=== PATIENT | male | born 1980 | race African-American/Black ===

== ENCOUNTER 2017-09-11 14:48 | Emergency (ER) | payer OTHER ==
[~2017-09-11] VITALS: Ht 175.3 cm; Wt 72.0 kg
[2017-09-11] MEDS ORDERED: KETOROLAC 30MG/ML VIAL IV STA (15:00)
[2017-09-11] MEDS ORDERED: ACETAMINOPHEN 325MG TABLET PO ONE (15:00)
[2017-09-11] MEDS ORDERED: SODIUM CHLORIDE 0.9% 1,000 ML IV ONE (15:00)
[2017-09-11] MEDS ORDERED: ONDANSETRON HCL 4MG/2ML VIAL IV STA (15:00)
[2017-09-11 15:44] LABS: INR 1.2; PROTHROMBIN TIME 12.9 sec (9.4-11.6)
[2017-09-11 15:45] LABS: HEMATOCRIT. 41.7 % (42.0-52.0); HEMOGLOBIN. 14.4 g/dL (14.0-18.0); MEAN CORPUSCULAR HEMOGLOBIN 30.3 pg (28.0-32.0); MEAN PLATELET VOLUME 8.5 fl (7.4-10.4); PLATELET 189 x1000/uL (130-400); RED BLOOD CELL COUNT 4.74 mill/uL (4.7-6.1)
[2017-09-11 15:46] LABS: CHLORIDE 103 mEq/L (98-107)
[2017-09-11 16:16] LABS: PLATELET ESTIMATE NORMAL
[2017-09-11 18:10] VITALS: BP 101/68
[2017-09-15] MEDS ORDERED: LEVO500T2 PO (15:14)
== END 2017-09-11 18:29 | disposition home or self-care (01) ==
LOC: ER 14:48
DX: R11.2 Nausea with vomiting, unspecified (principal)
CPT/HCPCS: 36415; 80053; 83690; 85025; 85610; 96361; 96374; 96375; 99285; J1885; J2405; J7030; Z7610; 96365

== ENCOUNTER 2017-09-12 15:50 | Inpatient (IN) | payer OTHER ==
[~2017-09-12] VITALS: Ht 177.8 cm; Wt 93.0 kg
[2017-09-12] MEDS ORDERED: SODIUM CHLORIDE 0.9% 1,000 ML IV ONE (16:35)
[2017-09-12] MEDS ORDERED: KETOROLAC 30MG/ML VIAL IV STA (16:35)
[2017-09-12] MEDS ORDERED: ONDANSETRON HCL 4MG/2ML VIAL IV STA (16:38)
[2017-09-12 16:58] LABS: HEMATOCRIT. 40.6 % (42.0-52.0); HEMOGLOBIN. 14.2 g/dL (14.0-18.0); MEAN CORPUSCULAR HEMOGLOBIN 30.6 pg (28.0-32.0); MEAN CORPUSCULAR VOLUME 87.7 fL (80.0-94.0); MEAN PLATELET VOLUME 8.1 fl (7.4-10.4); PLATELET 181 x1000/uL (130-400); RED BLOOD CELL COUNT 4.63 mill/uL (4.7-6.1); RED CELL DISTRIBUTION WIDTH 12.7 % (11.6-14.6)
[2017-09-12 17:05] LABS: INR 1.1; PROTHROMBIN TIME 11.9 sec (9.4-11.6)
[2017-09-12 17:10] LABS: CHLORIDE 105 mEq/L (98-107)
[2017-09-12 17:48] LABS: PLATELET ESTIMATE NORMAL
[2017-09-12] MEDS ORDERED: SODIUM CHLORIDE 0.9% 1000ML BAG (SEPSIS BOLUS) IV ONE (18:00)
[2017-09-12] MEDS ORDERED: LEVOFLOXACIN 750MG PREMIX 150 ML IV ONE (18:45)
[2017-09-12 19:01] LABS: CLARITY URINE CLEAR (CLEAR); COLOR URINE DARK YELLOW (YELLOW); KETONES URINE 1+ (NEGATIVE); LEUKOCYTE ESTERASE URINE NEGATIVE (NEGATIVE); NITRITE URINE NEGATIVE (NEGATIVE); OCCULT BLOOD URINE NEGATIVE (NEGATIVE); PH URINE 7.5 (4.5-8.0); PROTEIN URINE 1+ (NEGATIVE); SPECIFIC GRAVITY URINE 1.032 (1.005-1.030); UROBILINOGEN URINE >8.0 E.U./dL (0.2-1.0)
[2017-09-12] MEDS ORDERED: GUAIFENESIN 200MG/10ML SUGAR FREE UDC PO ONE (21:15)
[2017-09-12] MEDS ORDERED: CLONIDINE 0.1MG TABLET PO PRN (23:00)
[2017-09-12] MEDS ORDERED: DIPHENHYDRAMINE 50MG/ML VIAL IV PRN (23:00)
[2017-09-12] MEDS ORDERED: MAGNESIUM/ALUMINUM HYDROXIDE/SIMETHICONE 30ML UDC PO PRN (23:00)
[2017-09-12] MEDS ORDERED: ACETAMINOPHEN 650MG/20.3ML UDC GT PRN (23:00)
[2017-09-12] MEDS ORDERED: ACETAMINOPHEN 650MG SUPP PR PRN (23:00)
[2017-09-12] MEDS ORDERED: HYDROCODONE/ACETAMINOPHEN 5/325MG TABLET PO PRN (23:00)
[2017-09-12] MEDS ORDERED: NA PHOS,M-B/NA PHOS,DI-BA ENEMA 118ML PR PRN (23:00)
[2017-09-12] MEDS ORDERED: IPRATROPIUM/ALBUTEROL 0.5-3(2.5)MG/3ML NEB INH PRN (23:00)
[2017-09-12] MEDS ORDERED: DOCUSATE SODIUM 100MG CAPSULE PO PRN (23:00)
[2017-09-13] VITALS (10 sets, daily range): BP systolic 100–120; BP diastolic 52–76
[2017-09-13] MEDS: ACETAMINOPHEN 325MG TABLET PO PRN ×2 (00:45→10:04)
[2017-09-13] MEDS: CEFTRIAXONE 1 G PREMIX 50 ML IV SCH (02:32)
[2017-09-13] MEDS: GUAIFENESIN 200MG/10ML SUGAR FREE UDC PO PRN ×4 (02:32→20:19)
[2017-09-13] MEDS: AZITHROMYCIN 500 MG in SODIUM CHLORIDE 0.9% 250 ML IV SCH (03:34)
[2017-09-13] MEDS: SODIUM CHLORIDE 0.9% INJ 3ML FLUSH IVF SCH ×3 (06:32→21:07)
[2017-09-13 06:35] LABS: BASOPHILS % 0.2 % (0.0-2.0); EOSINOPHILS % 0.2 % (0.0-5.0); HEMATOCRIT. 37.7 % (42.0-52.0); HEMOGLOBIN. 12.8 g/dL (14.0-18.0); MEAN CORPUSCULAR VOLUME 88.3 fL (80.0-94.0); MEAN PLATELET VOLUME 8.5 fl (7.4-10.4); MONOCYTES % 10.5 % (2.0-8.0); NEUTROPHILS % 81.1 % (40.0-76.0); PLATELET 173 x1000/uL (130-400); RED BLOOD CELL COUNT 4.27 mill/uL (4.7-6.1); RED CELL DISTRIBUTION WIDTH 12.7 % (11.6-14.6)
[2017-09-13 07:18] LABS: CLARITY URINE CLEAR (CLEAR); COLOR URINE DARK YELLOW (YELLOW); KETONES URINE TRACE (NEGATIVE); LEUKOCYTE ESTERASE URINE NEGATIVE (NEGATIVE); NITRITE URINE NEGATIVE (NEGATIVE); OCCULT BLOOD URINE NEGATIVE (NEGATIVE); PROTEIN URINE NEGATIVE (NEGATIVE); SPECIFIC GRAVITY URINE 1.017 (1.005-1.030)
[2017-09-13 07:59] LABS: CHLORIDE 106 mEq/L (98-107)
[2017-09-13 08:18] LABS: *AMPHETAMINES SCREEN URINE NEGATIVE (NEGATIVE); *BARBITURATES SCREEN URINE NEGATIVE (NEGATIVE); *BENZODIAZEPINES SCREEN URINE NEGATIVE (NEGATIVE); *COCAINE SCREEN URINE NEGATIVE (NEGATIVE); CANNABINOID URINE SCREEN NEGATIVE (NEGATIVE); METHADONE URINE SCREEN NEGATIVE (NEGATIVE); OPIATES URINE SCREEN NEGATIVE (NEGATIVE); PHENCYCLIDINE URINE SCREEN NEGATIVE (NEGATIVE)
[2017-09-13 08:27] LABS: CREATINE KINASE 851 IU/L (39-308); HDL CHOLESTEROL 31 mg/dL (40-59); LDL CHOLESTEROL 90 mg/dL (5-100)
[2017-09-13] MEDS ORDERED: ENOXAPARIN 40MG/0.4ML SYR SUBCUT SCH (09:00)
[2017-09-13] MEDS ORDERED: ASPIRIN 81MG TABLET PO SCH (11:15)
[2017-09-13] MEDS ORDERED: ENOXAPARIN 100MG/ML SYR SUBCUT SCH (12:00)
[2017-09-13] MEDS: ASPIRIN 81MG EC TABLET PO SCH (12:37)
[2017-09-13] MEDS ORDERED: IOHEXOL-350 100 ML BOTTLE ONE (17:48)
[2017-09-13] MEDS: CARVEDILOL 3.125 MG TABLET PO SCH (21:00)
[2017-09-13] MEDS: IPRATROPIUM/ALBUTEROL 0.5-3(2.5)MG/3ML NEB INH SCH (21:03)
[2017-09-13] MEDS: ENOXAPARIN 100MG/ML SYR SUBCUT SCH (21:05)
[2017-09-14] VITALS (14 sets, daily range): BP systolic 101–123; BP diastolic 57–80
[2017-09-14] MEDS: IPRATROPIUM/ALBUTEROL 0.5-3(2.5)MG/3ML NEB INH SCH ×4 (01:12→21:13)
[2017-09-14] MEDS: CEFTRIAXONE 1 G PREMIX 50 ML IV SCH (02:40)
[2017-09-14] MEDS: AZITHROMYCIN 500 MG in SODIUM CHLORIDE 0.9% 250 ML IV SCH (02:54)
[2017-09-14] MEDS: SODIUM CHLORIDE 0.9% INJ 3ML FLUSH IVF SCH ×3 (06:12→20:41)
[2017-09-14 07:31] LABS: CHLORIDE 109 mEq/L (98-107)
[2017-09-14 07:33] LABS: BASOPHILS % 0.5 % (0.0-2.0); EOSINOPHILS % 2.1 % (0.0-5.0); HEMATOCRIT. 36.9 % (42.0-52.0); LYMPHOCYTES % 13.2 % (20.0-50.0); MEAN CORPUSCULAR HEMOGLOBIN 31.2 pg (28.0-32.0); MEAN CORPUSCULAR VOLUME 88.3 fL (80.0-94.0); MEAN PLATELET VOLUME 8.6 fl (7.4-10.4); MONOCYTES % 12.5 % (2.0-8.0); NEUTROPHILS % 71.7 % (40.0-76.0); PLATELET 201 x1000/uL (130-400); RED BLOOD CELL COUNT 4.18 mill/uL (4.7-6.1); RED CELL DISTRIBUTION WIDTH 12.7 % (11.6-14.6)
[2017-09-14] MEDS ORDERED: POTASSIUM CHLORIDE 20MEQ TABLET SR PO SCH ×2 (08:35→09:00)
[2017-09-14] MEDS: ASPIRIN 81MG EC TABLET PO SCH (08:42)
[2017-09-14] MEDS: ENOXAPARIN 100MG/ML SYR SUBCUT SCH (08:43)
[2017-09-14] MEDS: CARVEDILOL 3.125 MG TABLET PO SCH ×2 (08:47→20:38)
[2017-09-14] MEDS: GUAIFENESIN 200MG/10ML SUGAR FREE UDC PO PRN (16:16)
[2017-09-14] MEDS ORDERED: POTASSIUM CHLORIDE 20MEQ TABLET SR PO NR (20:45)
[2017-09-14] MEDS ORDERED: ATORVASTATIN CALCIUM 20MG TABLET PO SCH (21:00)
[2017-09-15] VITALS (18 sets, daily range): BP systolic 71–128; BP diastolic 47–89
[2017-09-15] MEDS: IPRATROPIUM/ALBUTEROL 0.5-3(2.5)MG/3ML NEB INH SCH ×3 (00:35→16:40)
[2017-09-15] MEDS: CEFTRIAXONE 1 G PREMIX 50 ML IV SCH (02:12)
[2017-09-15] MEDS: AZITHROMYCIN 500 MG in SODIUM CHLORIDE 0.9% 250 ML IV SCH (03:03)
[2017-09-15] MEDS: SODIUM CHLORIDE 0.9% INJ 3ML FLUSH IVF SCH ×2 (05:10→15:25)
[2017-09-15 06:55] LABS: CHLORIDE 112 mEq/L (98-107)
[2017-09-15] MEDS ORDERED: POTASSIUM CHLORIDE 20MEQ TABLET SR PO SCH (07:15)
[2017-09-15 07:25] LABS: BASOPHILS % 0.8 % (0.0-2.0); EOSINOPHILS % 6.3 % (0.0-5.0); HEMATOCRIT. 36.1 % (42.0-52.0); HEMOGLOBIN. 12.7 g/dL (14.0-18.0); LYMPHOCYTES % 20.7 % (20.0-50.0); MEAN CORPUSCULAR VOLUME 88.1 fL (80.0-94.0); MEAN PLATELET VOLUME 8.5 fl (7.4-10.4); MONOCYTES % 11.6 % (2.0-8.0); NEUTROPHILS % 60.6 % (40.0-76.0); PLATELET 240 x1000/uL (130-400); RED CELL DISTRIBUTION WIDTH 12.6 % (11.6-14.6)
[2017-09-15] MEDS ORDERED: MIDAZOLAM HCL 2 MG/2 ML VIAL ONE (07:29)
[2017-09-15] MEDS ORDERED: FENTANYL CITRATE/PF 50MCG/ML 2ML VIAL ONE (07:29)
[2017-09-15] MEDS ORDERED: IODIXANOL 320MG/ML 100 ML BOTTLE IV ONE (07:30)
[2017-09-15] MEDS ORDERED: LIDOCAINE HCL/PF 1% 10 MG/ML 30ML VIAL ONE (07:30)
[2017-09-15] MEDS ORDERED: ASPIRIN/SOD BICARB/CITRIC ACID 324MG TAB EFF ONE (07:30)
[2017-09-15] MEDS ORDERED: ONDANSETRON HCL 4MG/2ML VIAL IV PRN (08:30)
[2017-09-15] MEDS ORDERED: SODIUM CHLORIDE 0.45% 1,000 ML IV ONE (08:30)
[2017-09-15] MEDS ORDERED: MORPHINE SULFATE 4 MG/ML CPJ (NOT FOR IM USE) IV PRN (08:30)
[2017-09-15] MEDS ORDERED: ATROPINE SULFATE 1MG/10ML SYR IV PRN (08:30)
[2017-09-15] MEDS ORDERED: ACETAMINOPHEN 325MG TABLET PO PRN (08:30)
[2017-09-15] MEDS: CARVEDILOL 3.125 MG TABLET PO SCH (09:00)
[2017-09-15] MEDS: ASPIRIN 81MG EC TABLET PO SCH (09:08)
[2017-09-15] MEDS ORDERED: NICARDIPINE 100MCG/ML 10ML VIAL (CATH LAB) IV ONE (09:49)
[2017-09-15] MEDS ORDERED: NITROGLYCERIN 50MCG/ML 10ML VIAL (CATH LAB) IV ONE (09:49)
[2017-09-15] MEDS ORDERED: HEPARIN SODIUM 1,000 UNIT/1ML VIAL IV ONE (09:49)
[2017-09-15] MEDS ORDERED: LEVO500T2 PO (15:14)
== END 2017-09-15 17:15 | disposition home or self-care (01) | DRG 871 ==
LOC: ER 16:20 → 6EST 19:55 → ENRESERV 21:43 → CANRESERV 21:43 → ENRESERV 23:30 → 3WST 09-13 11:54
PROVIDERS: ADMIT Family Medicine; ATTEND Family Medicine
PROC: 4A023N7 Measurement of Cardiac Sampling and Pressure, Left Heart, Percutaneous Approach (ICD-10-PCS; principal; 2017-09-15)
PROC: B2111ZZ Fluoroscopy of Multiple Coronary Arteries using Low Osmolar Contrast (ICD-10-PCS; 2017-09-15)
PROC: B2151ZZ Fluoroscopy of Left Heart using Low Osmolar Contrast (ICD-10-PCS; 2017-09-15)
DX: A41.9 Sepsis, unspecified organism (principal); I21.4 Non-ST elevation (NSTEMI) myocardial infarction; I40.0 Infective myocarditis; J18.1 Lobar pneumonia, unspecified organism; R06.03 Acute respiratory distress; D64.9 Anemia, unspecified; E80.6 Other disorders of bilirubin metabolism; Z82.49 Family history of ischemic heart disease and other diseases of the circulatory system; Z83.3 Family history of diabetes mellitus
CPT/HCPCS: 36415; 71045; 71275; 80048; 80053; 80061; 80305; 81003; 82550; 83036; 83605; 83690; 83735; 84132; 84484; 85025; 85379; 85610; 87040; 87086; 87804; 93005; 93306; 93458; 94640; 96361; 96365; 96375; 99285; C1769; C1887; C1893; J0456; J0696; J1644; J1650; J1885; J1956; J2250; J2405; J3010; J3490; J7030; J7050; J7620; Q9967